=== PATIENT | female | born 1990 | race African-American/Black ===

== ENCOUNTER 2019-01-17 13:28 | Emergency (ER) | payer SELFPAY ==
[2019-01-17 14:17] LABS: Absolute Lymphocytes (CBC) 1.7 K/uL (0.7-4.9); Hematocrit 44.2 % (36.0-45.0); Lymphocytes % 32.8 % (15.3-44.8); MPV 7.2 fL (7.6-11.3); RBC Red Blood Cell Count 5.24 M/uL (3.86-4.86)
[2019-01-17 14:25] LABS: Protime INR 1.06
[2019-01-17 14:33] LABS: Urine Blood 3+ (NEG); Urine Glucose NEGATIVE (NEG); Urine Protein TRACE (NEG); Urine Specific Gravity >1.030 (1.005-1.030)
[2019-01-17] MEDS ORDERED: NA CHLORIDE 0.9% 1,000 ML ONE (14:35)
--- NOTE | 2019-01-17 14:44 | RAD REPORT ---
EXAM DESCRIPTION: [place] Single View01/17/2019 2:15 pm CLINICAL HISTORY: Chest pain COMPARISON: none FINDINGS: The left lung base is hazy. Remainder of the lungs appear clear. The heart is normal size IMPRESSION: The left lung base is hazy. It is uncertain if this is secondary to a mild infiltrate/pl eural effusion or positioning. PA and lateral chest series is recommended.
[2019-01-17 14:45] LABS: ALT/SGPT 21 U/L (12-78); AST/SGOT 26 U/L (15-37); Albumin 4.5 g/dL (3.4-5.0); Alkaline Phosphatase 91 U/L (45-117); BUN Blood Urea Nitrogen 14 mg/dL (7-18); Bicarbonate 29 mmol/L (21-32); Bilirubin Direct 0.1 mg/dL (0-0.2); Bilirubin Total 0.4 mg/dL (0.2-1.0); Glucose Level 86 mg/dL (74-106); Magnesium 2.1 mg/dL (1.8-2.4); NT PRO-BNP 61 pg/mL (<125); Potassium 3.7 mmol/L (3.5-5.1); Protein, Total 8.6 g/dL (6.4-8.2); Sodium Level 143 mmol/L (136-145); Troponin (Emerg Dept Use Only) < 0.02 ng/mL (0.0-0.045)
--- NOTE | 2019-01-17 14:48 | RAD REPORT ---
EXAM DESCRIPTION: CT - Head Brain Wo Cont - 01/17/2019 2:18 pm CLINICAL HISTORY: Syncope COMPARISON: None. TECHNIQUE: Computed axial tomography of the head was obtained. IV contrast was not requested. All CT scans are performed using dose optimization technique as appropriate and may include automated exposure control or mA/KV adjustment according to patient size. FINDINGS: An intracranial bleed is not seen . The ventricles are normal in caliber. No extra-axial fluid collection is noted. Fluid within the sinuses/ mastoids is not seen. IMPRESSION: No acute intracranial abnormality is seen. If patient's symptoms persist MRI of the bra in would be recommended.
--- NOTE | 2019-01-17 15:25 | RAD REPORT ---
EXAM DESCRIPTION: RAD - Chest Pa And Lat (2 Views) - 01/17/2019 3:20 pm CLINICAL HISTORY: syncope Chest pain. COMPARISON: Chest Single View dated 01/17/2019 FINDINGS: The lungs are clear. The heart is normal in size. No displaced fractures. IMPRESSION: No acute or concerning finding suspected.
--- NOTE | 2019-01-17 15:46 | ER ---
Nurse's Notes [facility] Name: Whitney Garcia Age: 28 yrs Sex: Female : 1990 Arrival Date: 01/17/2019 Time: 13:30 Bed 15 Private MD: Diagnosis: Syncope and collapse Presentation: 01/17 13:39 Presenting complaint: Patient states: I am off balance and dizzy, it happened 7 times yesterday. I got dizzy yesterday around 2200, I remember coming out of the kitchen then I don't remember anything I woke up on the floor. I hit the side of my head on the wall. I am still feeling dizzy and hot and flushed today. Transition of care: patient was not received from another setting of care. Onset of symptoms was January 16, 2019 at 09:00. Risk Assessment: Do you want to hurt yourself or someone else? Patient reports no desire to harm self or others. Initial Sepsis Screen: Does the patient meet any 2 criteria? No. Patient's initial sepsis screen is negative. Does the patient have a suspected source of infection? No. Patient's initial sepsis screen is negative. Care prior to arrival: None. 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 - Social history:: Smoking status: Patient/guardian denies using tobacco. - Ebola Screening: : Patient negative for fever greater than or equal to 101.5 degrees Fahrenheit, and additional compatible Ebola Virus Disease symptoms Patient denies exposure to infectious person Patient denies travel to an Ebola-affected area in the 21 days before illness onset No symptoms or risks identified at this time. Screenin:20 Abuse screen: Denies threats or abuse. Denies injuries from another. Nutritional jl7 screening: No deficits noted. Tuberculosis screening: No symptoms or risk factors identified. Fall Risk IV access (20 points). Total Peña Fall Scale indicates No Risk (0-24 pts). Assessment: 14:20 General: Appears in no apparent distress. uncomfortable, Behavior is calm, cooperative, jl7 appropriate for age. Pain: Denies pain. Neuro: Level of Consciousness is awake, alert, obeys commands, Oriented to person, place, time, situation, Moves all extremities. Full function Gait is steady, Speech is normal, Facial symmetry appears normal. Cardiovascular: Patient's skin is warm and dry. Respiratory: Airway is patent Respiratory effort is even, unlabored, Respiratory pattern is regular, symmetrical. Derm: Skin is dry, Skin is normal, Skin temperature is warm. 15:36 Reassessment: Patient appears in no apparent distress at this time. No changes from jl7 previously documented assessment. Patient and/or family updated on plan of care and expected duration. Pain level reassessed. Patient is alert, oriented x 3, equal unlabored respirations, skin warm/dry/pink. Vital Signs: 13:42 BP 140 / 92; Pulse 92; Resp 16; Temp 98.2; Pulse Ox 99% on R/A; Weight 46.72 kg; Height 5 ft. 4 in. (162.56 cm); Pain 0/10; 15:30 BP 134 / 85; Pulse 57; Resp 16 S; Pulse Ox 100% on R/A; jl7 13:42 Body Mass Index 17.68 (46.72 kg, 162.56 cm) ED Course: 13:30 Patient arrived in ED. as 13:41 Triage completed. 13:42 Arm band placed on left wrist. Patient placed in an exam room, on a stretcher. 13:49 Tristin Quiroz NP is PHCP. pm1 13:49 Jim Orellana MD is Attending Physician. pm1 13:55 Skip Das RN is Primary Nurse. jl7 14:17 XRAY Chest (1 view) In Process Unspecified. EDMS 14:20 Patient has correct armband on for positive identification. Bed in low position. Call jl7 light in reach. Side rails up X 1. Pulse ox on. NIBP on. Warm blanket given. 14:20 Initial lab(s) drawn, by nv, sent to lab. Urine collected: clean catch specimen, clear. jl7 Inserted saline lock: 22 gauge in left antecubital area, using aseptic technique. Blood collected. 14:22 CT Head Brain wo Cont In Process Unspecified. EDMS 15:26 Chest Pa And Lat (2 Views) XRAY In Process Unspecified. EDMS 16:07 No provider procedures requiring assistance completed. IV discontinued, intact, jl7 bleeding controlled, No redness/swelling at site. Pressure dressing applied. Administered Medications: 14:51 Drug: NS 0.9% 1000 ml Route: IV; Rate: 1000 ml; Site: left antecubital; [facility] 15:45 Follow up: Response: No adverse reaction; IV Status: Completed infusion; IV Intake: jl7 1000ml Point of Care Testing: Blood Glucose: 13:52 Blood Glucose: 118 mg/dL; 3 Ranges: Intake: 15:45 IV: 1000ml; Total: 1000ml. 7 Outcome: 15:45 Discharge ordered by . pm1 16:07 Discharged to home ambulatory. 7 16:07 Condition: stable 16:07 Discharge instructions given to patient, Instructed on discharge instructions, follow up and referral plans. Demonstrated understanding of instructions, follow-up care. 16:07 Patient left the ED. 7 Signatures: Dispatcher [employer] EDMS Krupa Chung, RN RN Maryan Palomino Patrick, SARAY DIGESTER HAND pm1 Skip Das RN RN jl7 Bridgette Christianson 3
--- NOTE | 2019-01-17 15:47 | EDPHYS ---
Physician Documentation [facility] Name: Whitney Garcia Age: 28 yrs Sex: Female : 1990 Arrival Date: 01/17/2019 Time: 13:30 Bed 15 Private MD: ED Physician Jim Orellana HPI: 01/17 14:05 This 28 yrs old Black Female presents to ER via Ambulatory with complaints of Dizziness.pm1 14:05 The patient presents with dizziness, feeling faint. Onset: The symptoms/episode pm1 began/occurred 2 day(s) ago. Context: occurred at home, just prior to the episode the patient experienced no apparent symptoms. Modifying factors: The symptoms are alleviated by sitting down, the symptoms are aggravated by nothing. Associated signs and symptoms: Pertinent negatives: abdominal pain, chest pain, headache, nausea, numbness, shortness of breath, tingling. Severity of symptoms: in the emergency department the symptoms have improved markedly, no episodes of near syncope or syncope today. Patient's baseline: Neuro: alert and fully oriented, Motor: no deficits, Ambulation: walks without assistance, Speech: normal. The patient has not experienced similar symptoms in the past. The patient has not recently seen a physician. Patient with one syncopal episode two days ago then 7 episodes of near syncope yesterday. Today no syncope or near syncope. 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 - Social history:: Smoking status: Patient/guardian denies using tobacco. - Ebola Screening: : Patient negative for fever greater than or equal to 101.5 degrees Fahrenheit, and additional compatible Ebola Virus Disease symptoms Patient denies exposure to infectious person Patient denies travel to an Ebola-affected area in the 21 days before illness onset No symptoms or risks identified at this time. ROS: 14:05 Constitutional: Negative for fever, chills, and weight loss, Eyes: Negative for injury, pm1 pain, redness, and discharge, ENT: Negative for injury, pain, and discharge, Neck: Negative for injury, pain, and swelling, Cardiovascular: Negative for chest pain, palpitations, and edema, Respiratory: Negative for shortness of breath, cough, wheezing, and pleuritic chest pain, Abdomen/GI: Negative for abdominal pain, nausea, vomiting, diarrhea, and constipation, Back: Negative for injury and pain, : Negative for injury, bleeding, discharge, and swelling, MS/Extremity: Negative for injury and deformity, Skin: Negative for injury, rash, and discoloration. 14:05 Neuro: Positive for syncope, near syncope, Negative for altered mental status, dizziness, headache, numbness, tingling, weakness. Exam: 14:05 Constitutional: This is a well developed, well nourished patient who is awake, alert, pm1 and in no acute distress. Head/Face: Normocephalic, atraumatic. Eyes: Pupils equal round and reactive to light, extra-ocular motions intact. Lids and lashes normal. Conjunctiva and sclera are non-icteric and not injected. Cornea within normal limits. Periorbital areas with no swelling, redness, or edema. ENT: Nares patent. No nasal discharge, no septal abnormalities noted. Tympanic membranes are normal and external auditory canals are clear. Oropharynx with no redness, swelling, or masses, exudates, or evidence of obstruction, uvula midline. Mucous membranes moist. Neck: Trachea midline, no thyromegaly or masses palpated, and no cervical lymphadenopathy. Supple, full range of motion without nuchal rigidity, or vertebral point tenderness. No Meningismus. Chest/axilla: Normal chest wall appearance and motion. Nontender with no deformity. No lesions are appreciated. Cardiovascular: Regular rate and rhythm with a normal S1 and S2. No gallops, murmurs, or rubs. Normal PMI, no JVD. No pulse deficits. Respiratory: Lungs have equal breath sounds bilaterally, clear to auscultation and percussion. No rales, rhonchi or wheezes noted. No increased work of breathing, no retractions or nasal flaring. Abdomen/GI: Soft, non-tender, with normal bowel sounds. No distension or tympany. No guarding or rebound. No evidence of tenderness throughout. Back: No spinal tenderness. No costovertebral tenderness. Full range of motion. Skin: Warm, dry with normal turgor. Normal color with no rashes, no lesions, and no evidence of cellulitis. MS/ Extremity: Pulses equal, no cyanosis. Neurovascular intact. Full, normal range of motion. 14:05 Neuro: Orientation: is normal, Cranial nerves: grossly normal, CN II- XII are normal as tested, Motor: is normal, moves all fours, Sensation: is normal, no obvious gross deficits, Gait: is steady, at a normal pace, without difficulty. Vital Signs: 13:42 BP 140 / 92; Pulse 92; Resp 16; Temp 98.2; Pulse Ox 99% on R/A; Weight 46.72 kg; Height ch 5 ft. 4 in. (162.56 cm); Pain 0/10; 15:30 BP 134 / 85; Pulse 57; Resp 16 S; Pulse Ox 100% on R/A; jl7 13:42 Body Mass Index 17.68 (46.72 kg, 162.56 cm) ch MDM: 13:50 Patient medically screened. pm1 15:44 Data reviewed: vital signs. Data interpreted: Pulse oximetry: on room air is 99 %. pm1 Interpretation: normal. Counseling: I had a detailed discussion with the patient and/or guardian regarding: the historical points, exam findings, and any diagnostic results supporting the discharge/admit diagnosis, lab results, radiology results, the need for outpatient follow up, to return to the emergency department if symptoms worsen or persist or if there are any questions or concerns that arise at home. 01/17 13:56 Order name: Glucose, Ancillary Testing; Complete Time: 13:59 EDMS 01/17 13:56 Order name: Basic Metabolic Panel; Complete Time: 15:00 pm1 01/17 13:56 Order name: CBC with Diff; Complete Time: 14:23 pm1 01/17 13:56 Order name: LFT's; Complete Time: 15:00 pm1 01/17 13:56 Order name: Magnesium; Complete Time: 15:00 pm1 01/17 13:56 Order name: NT PRO-BNP; Complete Time: 15:00 pm1 01/17 13:56 Order name: PT-INR; Complete Time: 14:37 pm1 01/17 13:56 Order name: Troponin (emerg Dept Use Only); Complete Time: 15:00 pm1 01/17 13:56 Order name: XRAY Chest (1 view); Complete Time: 15:00 pm1 01/17 13:56 Order name: CT Head Brain wo Cont; Complete Time: 15:24 pm1 01/17 14:11 Order name: Urine Dipstick--Ancillary (enter results); Complete Time: 14:37 bd 01/17 14:11 Order name: Urine --Ancillary (enter results); Complete Time: 14:37 bd 01/17 15:00 Order name: Chest Pa And Lat (2 Views) XRAY; Complete Time: 15:44 pm1 01/17 13:56 Order name: EKG; Complete Time: 13:58 pm1 01/17 13:56 Order name: Cardiac monitoring; Complete Time: 14:29 pm1 01/17 13:56 Order name: EKG - Nurse/Tech; Complete Time: 14:29 pm1 01/17 13:56 Order name: IV Saline Lock; Complete Time: 14:29 pm1 01/17 13:56 Order name: Labs collected and sent; Complete Time: 14:29 pm1 01/17 13:56 Order name: O2 Per Protocol; Complete Time: 14:29 pm1 01/17 13:56 Order name: O2 Sat Monitoring; Complete Time: 14:29 pm1 01/17 13:56 Order name: Urine Dipstick-Ancillary (obtain specimen); Complete Time: 14:29 pm1 01/17 13:56 Order name: Urine Test (obtain specimen); Complete Time: 14:29 pm1 Administered Medications: 14:51 Drug: NS 0.9% 1000 ml Route: IV; Rate: 1000 ml; Site: left antecubital; jl7 15:45 Follow up: Response: No adverse reaction; IV Status: Completed infusion; IV Intake: jl7 1000ml Point of Care Testing: Blood Glucose: 13:52 Blood Glucose: 118 mg/dL; dh3 Ranges: Critical Glucose Levels:Adult <50 mg/dl or >400 mg/dl <40 mg/dl or >180 mg/dl Disposition: 16:24 Co-signature as Attending Physician, Jim Orellana MD. Chart complete. rn Disposition: 01/17/19 15:45 Discharged to Home. Impression: Syncope and collapse. - Condition is Stable. - Discharge Instructions: Syncope. - Work release form, Medication Reconciliation Form, Thank You Letter, Antibiotic Education, Prescription Opioid Use form. - Follow up: Emergency Department; When: As needed; Reason: Worsening of condition. Follow up: Private Physician; When: 2 - 3 days; Reason: Recheck today's complaints, Continuance of care, Re-evaluation by your physician. - Problem is new. - Symptoms have improved. Signatures: Dispatcher [employer] EDMS Krupa Chung, Jim Paredes RN, ch, MD MD rn Marinas, Patrick, MARKET RESEARCH ASSOCIATE MARKET RESEARCH ASSOCIATE pm1 Skip Das RN RN jl7 Corrections: (The following items were deleted from the chart) 16:07 15:45 01/17/2019 15:45 Discharged to Home. Impression: Syncope and collapse. Condition jl7 is Stable. Forms are Medication Reconciliation Form, Thank You Letter, Antibiotic Education, Prescription Opioid Use. Follow up: Emergency Department; When: As needed; Reason: Worsening of condition. Follow up: Private Physician; When: 2 - 3 days; Reason: Recheck today's complaints, Continuance of care, Re-evaluation by your physician. Problem is new. Symptoms have improved. pm1
--- NOTE | 2019-01-17 16:55 | EKG ---
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
== END 2019-01-17 16:07 | disposition home or self-care (01) ==
LOC: ER 13:28
DX: R55 Syncope and collapse (principal)
CPT/HCPCS: 36415; 70450; 71045; 71046; 80048; 80076; 81003; 81025; 82962; 83735; 83880; 84484; 85025; 85610; 93005; 96360; 99284; J7030

== ENCOUNTER 2022-09-12 17:21 | Emergency (ER) | payer SELFPAY ==
--- NOTE | 2022-09-12 18:07 | ER ---
Nurse's Notes [facility] Name: Whitney Garcia Age: 32 yrs Sex: Female : 1990 Arrival Date: 09/12/2022 Time: 17:21 Bed IW2 Private MD: Diagnosis: Vomiting;Diarrhea, unspecified Presentation: 09/12 17:59 Chief complaint: Patient states: "I ate some crawfish a few days ago and my stomach mb9 didn't agree with it. I had diarrhea, N/V. I called into work and was told to not return without a work note. So I need a work note and just to make sure i'm ok. I feel completely fine now". Coronavirus screen: At this time, the client does not indicate any symptoms associated with coronavirus-19. Ebola Screen: No symptoms or risks identified at this time. Initial Sepsis Screen: Does the patient meet any 2 criteria? No. Patient's initial sepsis screen is negative. Does the patient have a suspected source of infection? No. Patient's initial sepsis screen is negative. Risk Assessment: Do you want to hurt yourself or someone else? Patient reports no desire to harm self or others. Onset of symptoms was September 12, 2022. 17:59 Method Of Arrival: Ambulatory 9 17:59 Acuity: NAE 5 mb9 Triage Assessment: 18:02 General: Appears in no apparent distress. Behavior is calm, cooperative. Pain: Denies mb9 pain. Neuro: Level of Consciousness is awake, alert, obeys commands, Oriented to person, place, time, situation, Appropriate for age. Respiratory: Airway is patent Respiratory effort is even, unlabored, Respiratory pattern is regular, symmetrical. GI: Abdomen is flat, non-distended, Patient currently denies diarrhea, nausea, pain, vomiting. Derm: Skin is pink, warm \\T\\ dry. Musculoskeletal: Range of motion: intact in all extremities. 18:18 GI: Reports diarrhea, nausea. 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 - Social history:: Smoking status: Patient denies any tobacco usage or history of. Screenin:17 [facility] ED Fall Risk Assessment (Adult) History of falling in the last 3 months, db including since admission No falls in past 3 months (0 pts) Confusion or Disorientation No (0 pts) Intoxicated or Sedated No (0 pts) Impaired Gait No (0 pts) Mobility Assist Device Used No (0 pt) Altered Elimination No (0 pt) Score/Fall Risk Level 0 - 2 = Low Risk Oriented to surroundings, Maintained a safe environment. Abuse screen: Denies threats or abuse. Has been threatened or abused. Nutritional screening: No deficits noted. Tuberculosis screening: No symptoms or risk factors identified. Assessment: 18:02 Reassessment: see triage assessment. mb9 18:17 Reassessment: Patient appears in no apparent distress at this time. Patient and/or db family updated on plan of care and expected duration. Pain level reassessed. Patient is alert, oriented x 3, equal unlabored respirations, skin warm/dry/pink. Patient states feeling better. Patient states symptoms have improved. GI: Abdomen is flat, non-distended. Vital Signs: 17:59 BP 140 / 93; Pulse 74; Resp 18; Temp 97.7; Pulse Ox 97% on R/A; Weight 52.16 kg; Height mb9 5 ft. 4 in. ; Pain 0/10; 18:17 BP 127 / 78; Pulse 76; Resp 16; Pulse Ox 98% on R/A; db 17:59 Body Mass Index 19.74 (52.16 kg, 162.56 cm) mb9 17:59 Pain Scale: Adult mb9 ED Course: 17:22 Patient arrived in ED. rg4 18:01 Triage completed. mb9 18:01 Arm band placed on. mb9 18:03 Tank Mcarthur PA is PHCP. [facility] 18:03 Daryl Cheney MD is Attending Physician. m 18:17 Patient has correct armband on for positive identification. db 18:17 No provider procedures requiring assistance completed. Patient did not have IV access db during this emergency room visit. Administered Medications: No medications were administered Medication: 18:17 VIS not applicable for this client. db Outcome: 18:06 Discharge ordered by . wolfgang 18:17 Discharged to home ambulatory. db 18:17 Condition: stable 18:17 Discharge instructions given to patient, Instructed on discharge instructions, follow up and referral plans. 18:19 Patient left the ED. db Signatures: Tank Mcarthur PA PA jmm Garcia, Rubi rg4 Sosa Ann, RN RN Fang John RN RN mb9 Corrections: (The following items were deleted from the chart) 18:01 18:01 Home Meds: one a days vitamins; mb9 mb9 18:04 17:59 Chief complaint: Patient states: "I ate some crawfish and my stomach didn't agree mb9 with it. I had diarrhea, N/V. I called into work today and was told to not return without a work note. So I need a work note and just to make sure i'm ok. I feel completely fine now" mb9 18: 17:59 Acuity: NAE 4 mb9 mb9
--- NOTE | 2022-09-12 18:07 | EDPHYS ---
Physician Documentation [facility] Name: Whitney Garcia Age: 32 yrs Sex: Female : 1990 Arrival Date: 09/12/2022 Time: 17:21 Bed IW2 Private MD: ED Physician Daryl Cheney HPI: 09/12 18:03 This 32 yrs old Black Female presents to ER via Ambulatory with complaints of jmm Nausea/Vomiting, Abdominal Pain. 18:03 The patient presents to the emergency department with nausea, vomiting. Onset: The jmm symptoms/episode began/occurred gradually, 3 day(s) ago. Possible causes: bad food exposure, crawfish. The symptoms are aggravated by nothing. The symptoms are alleviated by remaining still. Associated signs and symptoms: Pertinent negatives: fever. Symptoms have resolved. 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 - Social history:: Smoking status: Patient denies any tobacco usage or history of. ROS: 18:03 Constitutional: Negative for fever, chills, and weight loss, Cardiovascular: Negative jmm for chest pain, palpitations, and edema, Respiratory: Negative for shortness of breath, cough, wheezing, and pleuritic chest pain, Abdomen/GI: Negative for abdominal pain, nausea, vomiting, diarrhea, and constipation. 18:03 All other systems are negative. Exam: 18:03 Constitutional: This is a well developed, well nourished patient who is awake, alert, jmm and in no acute distress. Head/Face: atraumatic. Eyes: EOMI, no conjunctival erythema appreciated ENT: Moist Mucus Membranes Neck: Trachea midline, Supple Chest/axilla: Normal chest wall appearance and motion. Cardiovascular: Regular rate and rhythm. No edema appreciated Respiratory: Normal respirations, no respiratory distress appreciated Abdomen/GI: Non distended Back: Normal ROM Skin: General appearance color normal MS/ Extremity: Moves all extremities, no obvious deformities appreciated, no edema noted to the lower extremities Neuro: Awake and alert Psych: Behavior is normal, Mood is normal, Patient is cooperative and pleasant Vital Signs: 17:59 BP 140 / 93; Pulse 74; Resp 18; Temp 97.7; Pulse Ox 97% on R/A; Weight 52.16 kg; Height mb9 5 ft. 4 in. ; Pain 0/10; 18:17 BP 127 / 78; Pulse 76; Resp 16; Pulse Ox 98% on R/A; db 17:59 Body Mass Index 19.74 (52.16 kg, 162.56 cm) mb9 17:59 Pain Scale: Adult mb9 MDM: 18:03 Patient medically screened. [facility] 18:05 Differential diagnosis: Gastroenteritis, Salmonella, Shigella. Data reviewed: vital [facility] signs, nurses notes. Counseling: I had a detailed discussion with the patient and/or guardian regarding: the historical points, exam findings, and any diagnostic results supporting the discharge/admit diagnosis, the need for outpatient follow up, to return to the emergency department if symptoms worsen or persist or if there are any questions or concerns that arise at home. ED course: Symptoms are resolved for the patient. I do not because suspect an acute intra-abdominal process. Administered Medications: No medications were administered Disposition Summary: 09/12/22 18:06 Discharge Ordered Location: Home [facility] Condition: Stable [facility] Diagnosis - Vomiting jmm - Diarrhea, unspecified jmm Followup: jm - With: Private Physician - When: 2 - 3 days - Reason: Recheck today's complaints, Continuance of care, Re-evaluation by your physician Discharge Instructions: - Discharge Summary Sheet jmm - Diarrhea, Adult jmm - Vomiting, Adult m Forms: - Work release form jm - Medication Reconciliation Form [facility] - Thank You Letter [facility] - Antibiotic Education jmm - Prescription Opioid Use [facility] Signatures: Tank Mcarthur PA PA jmm Breneman, Mary Beth, RN RN mb9 Corrections: (The following items were deleted from the chart) 18:01 18:01 Home Meds: one a days vitamins; mb9 mb9
[2022-09-12 19:08] VITALS: TEMP 97.7
[2022-09-12 19:09] VITALS: BP 127/78; O2SAT 98
== END 2022-09-12 18:19 | disposition home or self-care (01) ==
LOC: ER 17:21
DX: R11.2 Nausea with vomiting, unspecified (principal); R19.7 Diarrhea, unspecified
CPT/HCPCS: 99282

== ENCOUNTER 2022-09-20 14:34 | Emergency (ER) | payer SELFPAY ==
[2022-09-20] MEDS ORDERED: NA CHLORIDE 0.9% 1,000 ML ONE (15:02)
[2022-09-20] MEDS ORDERED: ONDANSETRON 4 MG/2 ML VIAL ONE (15:02)
[2022-09-20] MEDS ORDERED: FAMOTIDINE 20 MG/2 ML VIAL IV ONE (15:02)
[2022-09-20 15:26] LABS: Absolute Lymphocytes (CBC) 0.3 K/uL (0.7-4.9); Hematocrit 37.4 % (36.0-45.0); Lymphocytes % 4.3 % (15.3-44.8); MCV 85.3 fL (80-100); MPV 6.6 fL (7.6-11.3); RBC Red Blood Cell Count 4.38 M/uL (3.86-4.86)
[2022-09-20 15:35] LABS: Specific Gravity 1.029 (1.005-1.030)
[2022-09-20 15:36] LABS: Specific Gravity 1.029 (1.005-1.030); Urine Bacteria <20 /HPF (<20); Urine Bilirubin NEGATIVE (Negative); Urine Blood 1+ (Negative); Urine Clarity Turbid (Clear); Urine Color Light-Yellow (Yellow); Urine Crystals Unidentified Few /HPF (None Seen); Urine Glucose NEGATIVE (Negative); Urine Mucus Slight /HPF (None Seen); Urine Protein TRACE (Negative); Urine Urobilinogen Normal (Normal); Urine pH 6.5 (5.0-7.0)
[2022-09-20 15:46] LABS: Bilirubin Total 0.6 mg/dL (0.2-1.0); Potassium 3.4 mEq/L (3.5-5.1); Protein, Total 7.2 g/dL (6.4-8.2)
--- NOTE | 2022-09-20 16:00 | EDPHYS ---
Physician Documentation [facility] Name: Whitney Garcia Age: 32 yrs Sex: Female : 1990 Arrival Date: 09/20/2022 Time: 14:34 Bed 5 Private MD: ED Physician Jim Orellana HPI: 09/20 14:40 This 32 yrs old Black Female presents to ER via Ambulatory with complaints of Abdominal jh7 Pain. 14:40 The patient presents with abdominal pain in the left lower quadrant. Onset: The jh7 symptoms/episode began/occurred at 04:00. Associated signs and symptoms: Pertinent positives: diarrhea, nausea, Pertinent negatives: fever, vomiting. The symptoms are described as crampy. 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 - Social history:: Smoking status: unknown. ROS: 14:40 Constitutional: Negative for fever, chills, and weight loss, Eyes: Negative for injury, jh7 pain, redness, and discharge, Neck: Negative for injury, pain, and swelling, Cardiovascular: Negative for chest pain, palpitations, and edema, Respiratory: Negative for shortness of breath, cough, wheezing, and pleuritic chest pain, Abdomen/GI: Negative for abdominal pain, nausea, vomiting, diarrhea, and constipation, Back: Negative for injury and pain, MS/Extremity: Negative for injury and deformity, Skin: Negative for injury, rash, and discoloration, Neuro: Negative for headache, weakness, numbness, tingling, and seizure. 14:40 Abdomen/GI: Positive for nausea, diarrhea, abdominal cramps, Negative for vomiting, rectal bleeding. 14:40 All other systems are negative. Exam: 14:40 Constitutional: This is a well developed, well nourished patient who is awake, alert, jh7 and in no acute distress. Head/Face: Normocephalic, atraumatic. Eyes: Pupils equal round and reactive to light, extra-ocular motions intact. Lids and lashes normal. Conjunctiva and sclera are non-icteric and not injected. Cornea within normal limits. Periorbital areas with no swelling, redness, or edema. Neck: Trachea midline, no thyromegaly or masses palpated, and no cervical lymphadenopathy. Supple, full range of motion without nuchal rigidity, or vertebral point tenderness. No Meningismus. Cardiovascular: Regular rate and rhythm with a normal S1 and S2. No gallops, murmurs, or rubs. Normal PMI, no JVD. No pulse deficits. Respiratory: Lungs have equal breath sounds bilaterally, clear to auscultation and percussion. No rales, rhonchi or wheezes noted. No increased work of breathing, no retractions or nasal flaring. Back: No spinal tenderness. No costovertebral tenderness. Full range of motion. Skin: Warm, dry with normal turgor. Normal color with no rashes, no lesions, and no evidence of cellulitis. MS/ Extremity: Pulses equal, no cyanosis. Neurovascular intact. Full, normal range of motion. Neuro: Awake and alert, GCS 15, oriented to person, place, time, and situation. Motor strength 5/5 in all extremities. Sensory grossly intact. Normal gait. 14:40 Abdomen/GI: Inspection: abdomen appears normal, Bowel sounds: normal, Palpation: soft, mild abdominal tenderness, in the left lower quadrant. Vital Signs: 14:42 BP 125 / 73; Pulse 83; Resp 18 S; Temp 97.7(O); Pulse Ox 100% on R/A; Weight 49.9 kg aa5 (R); Height 5 ft. 4 in. (R); 14:42 Body Mass Index 18.88 (49.90 kg, 162.56 cm) aa5 MDM: 14:40 Patient medically screened. [facility] 16:05 Differential diagnosis: diverticulitis, gastritis, Pyelonephritis, urinary tract [facility] infection, Gastroenteritis. Data reviewed: vital signs, nurses notes, lab test result(s), radiologic studies. I considered the following discharge prescriptions or medication management in the emergency department Medications were administered in the Emergency Department. See MAR. Test considered but Not performed: CT: Unremarkable labs, pain significantly improved after medication, quality of pain not consistent with acute abdomen. Counseling: I had a detailed discussion with the patient and/or guardian regarding: the historical points, exam findings, and any diagnostic results supporting the discharge/admit diagnosis, to return to the emergency department if symptoms worsen or persist or if there are any questions or concerns that arise at home. Response to treatment: the patient's symptoms have markedly improved after treatment. 09/20 14:43 Order name: CBC with Diff; Complete Time: 15:30 [facility] 09/20 14:43 Order name: CMP; Complete Time: 15:56 [facility] 09/20 14:43 Order name: Lipase; Complete Time: 15:56 [facility] 09/20 14:43 Order name: Test, Urine; Complete Time: 15:41 [facility] 09/20 14:43 Order name: Urinalysis w/ reflexes; Complete Time: 15:41 [facility] 09/20 14:43 Order name: IV Saline Lock; Complete Time: 15:15 [facility] 09/20 14:43 Order name: Labs collected and sent; Complete Time: 15:15 [facility] Administered Medications: 15:07 Drug: Famotidine IVP 20 mg Route: IVP; Site: right forearm; jl7 16:14 Follow up: Response: No adverse reaction ss 15:09 Drug: NS 0.9% IV 1000 ml Route: IV; Rate: 1 bolus; Site: right forearm; jl7 16:15 Follow up: IV Status: Completed infusion; IV Intake: 1000ml ss 15:09 Drug: Ondansetron IVP 4 mg Route: IVP; Site: right forearm; jl7 16:15 Follow up: Response: No adverse reaction ss Disposition: 19:46 Co-signature as Attending Physician, Jim Orellana MD I reviewed the patient's care rn provided by the Advanced Practice Provider and agree with the diagnosis and treatment plan. Disposition Summary: 09/20/22 15:59 Discharge Ordered Location: Home [facility] Problem: new [facility] Symptoms: have improved [facility] Condition: Stable [facility] Diagnosis - Noninfective gastroenteritis and colitis, unspecified jh7 Followup: [facility] - With: Private Physician - When: 2 - 3 days - Reason: Recheck today's complaints Discharge Instructions: - Discharge Summary Sheet 7 - Diarrhea, Adult jh7 - Viral Gastroenteritis, Adult jh7 Forms: - Work release form bd - Medication Reconciliation Form 7 - Thank You Letter [facility] Prescriptions: - ondansetron 4 mg Oral Tablet,disintegrating - take 1 tablet by ORAL route every 4-6 hours As needed as needed for nausea and jh7 vomiting; 20 tablet; Refills: 0, Product Selection Permitted - Levsin 0.125 mg Oral Tablet - take 1 tablet by ORAL route every 8 hours; 30 tablet; Refills: 0, Product jh7 Selection Permitted Signatures: Dispatcher [employer] Jim Chisholm MD MD rn Calderon, Audri RN RN aa5 Skip Das RN RN jl7 Cindy Modi, VISUAL MERCHANDISING DIRECTOR VISUAL MERCHANDISING DIRECTOR jh7 Jessie Stephenson RN ss
--- NOTE | 2022-09-20 16:00 | ER ---
Nurse's Notes [facility] Name: Whitney Garcia Age: 32 yrs Sex: Female : 1990 Arrival Date: 09/20/2022 Time: 14:34 Bed 5 Private MD: Diagnosis: Noninfective gastroenteritis and colitis, unspecified Presentation: 09/20 14:42 Chief complaint: Patient states: abd pain, nausea, and diarrhea that began today around aa5 0400. 14:42 Coronavirus screen: diarrhea, nausea. Ebola Screen: Patient denies travel to an [facility] Ebola-affected area in the 21 days before illness onset. Initial Sepsis Screen: Does the patient meet any 2 criteria? No. Patient's initial sepsis screen is negative. Does the patient have a suspected source of infection? No. Patient's initial sepsis screen is negative. Risk Assessment: Do you want to hurt yourself or someone else? Patient reports no desire to harm self or others. Onset of symptoms was September 20, 2022. 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 - Social history:: Smoking status: unknown. Screenin:05 [facility] ED Fall Risk Assessment (Adult) History of falling in the last 3 months, jl7 including since admission No falls in past 3 months (0 pts) Confusion or Disorientation No (0 pts) Intoxicated or Sedated No (0 pts) Impaired Gait No (0 pts) Mobility Assist Device Used No (0 pt) Altered Elimination Score/Fall Risk Level 0 - 2 = Low Risk Oriented to surroundings, Maintained a safe environment. Abuse screen: Denies threats or abuse. Denies injuries from another. Nutritional screening: No deficits noted. Tuberculosis screening: No symptoms or risk factors identified. Assessment: 15:05 General: Appears in no apparent distress. uncomfortable, Behavior is calm, cooperative, jl7 appropriate for age. Pain: Complains of pain in suprapubic area Pain does not radiate. Pain currently is 3 out of 10 on a pain scale. at worst was 10 out of 10 on a pain scale. Quality of pain is described as crampy, sharp, Pain began 0430 Is intermittent. Neuro: Level of Consciousness is awake, alert, obeys commands, Oriented to person, place, time, situation. Cardiovascular: Patient's skin is warm and dry. Respiratory: Airway is patent Respiratory effort is even, unlabored, Respiratory pattern is regular, symmetrical. GI: Abdomen is flat, non-distended, Last BM was September 20, 2022. Bowel sounds present X 4 quads. Abd is soft Abdomen is tender to palpation Reports diarrhea, nausea. Derm: Skin is dry, Skin is normal, Skin temperature is warm. Vital Signs: 14:42 BP 125 / 73; Pulse 83; Resp 18 S; Temp 97.7(O); Pulse Ox 100% on R/A; Weight 49.9 kg aa5 (R); Height 5 ft. 4 in. (R); 14:42 Body Mass Index 18.88 (49.90 kg, 162.56 cm) aa5 ED Course: 14:35 Patient arrived in ED. ts1 14:39 Skip Das, RN is Primary Nurse. jl7 14:40 Cindy Modi FNP is PHCP. 7 14:40 Jim Orellana MD is Attending Physician. [facility] 14:42 Arm band placed on Patient placed in an exam room, on a stretcher. aa5 14:45 Triage completed. aa5 15:00 Initial lab(s) drawn, by ut, sent to lab. Urine collected: clean catch specimen, clear. 7 Inserted saline lock: 22 gauge in right forearm, using aseptic technique. Blood collected. 15:05 Patient has correct armband on for positive identification. Bed in low position. Call jl7 light in reach. Side rails up X2. Pulse ox on. NIBP on. Warm blanket given. 16:15 No provider procedures requiring assistance completed. IV discontinued, intact, ss bleeding controlled, No redness/swelling at site. Pressure dressing applied. Administered Medications: 15:07 Drug: Famotidine IVP 20 mg Route: IVP; Site: right forearm; 7 16:14 Follow up: Response: No adverse reaction ss 15:09 Drug: NS 0.9% IV 1000 ml Route: IV; Rate: 1 bolus; Site: right forearm; jl7 16:15 Follow up: IV Status: Completed infusion; IV Intake: 1000ml 15:09 Drug: Ondansetron IVP 4 mg Route: IVP; Site: right forearm; [facility] 16:15 Follow up: Response: No adverse reaction Medication: 15:05 VIS not applicable for this client. jl7 Intake: 16:15 IV: 1000ml; Total: 1000ml. Outcome: 15:59 Discharge ordered by . abad 16:15 Discharged to home ambulatory. 16:15 Condition: good 16:15 Discharge instructions given to patient, Instructed on discharge instructions, follow up and referral plans. medication usage, Demonstrated understanding of instructions, follow-up care, medications, Prescriptions given X 2. 16:16 Patient left the ED. Signatures: Alecia Borrego, RN RN aa5 Jessie Stephenson RN RN Skip Junior RN RN jl7 Cindy Modi, BOTTLE MACHINE OPERATOR BOTTLE MACHINE OPERATOR Bronwyn Mack, PAS PAS ts1
[2022-09-20 16:20] VITALS: BP 125/73; TEMP 97.7; O2SAT 100
== END 2022-09-20 16:16 | disposition home or self-care (01) ==
LOC: ER 14:34
DX: K52.9 Noninfective gastroenteritis and colitis, unspecified (principal)
CPT/HCPCS: 36415; 80053; 81001; 81025; 83690; 85025; 96361; 96374; 96375; 99284; J2405; J7030